=== PATIENT | female | born 1995 | race Caucasian/White ===

== ENCOUNTER 2020-05-23 17:10 | Emergency (ER) | payer MEDICAID ==
[~2020-05-23] VITALS: Ht 165.1 cm; Wt 68.0 kg
[2020-05-23] MEDS ORDERED: LIDOCAINE VISCOUS 2% UD 15 ML UDC ONE (18:07)
[2020-05-23] MEDS ORDERED: IBUPROFEN 600 MG TABLET ONE (18:08)
[2020-05-23] MEDS: LIDOCAINE VISCOUS 2% UD 15 ML UDC MM ONE (18:12)
[2020-05-23] MEDS: IBUPROFEN 600 MG TABLET PO ONE (18:12)
--- NOTE | 2020-05-23 18:13 | NUR ---
MEDICATED ORDERED,WAITING FOR SWABS
[2020-05-23 19:01] VITALS: BP 121/67
== END 2020-05-23 19:01 | disposition home or self-care (01) ==
LOC: ER 17:16
DX: J02.9 Acute pharyngitis, unspecified (principal); R50.9 Fever, unspecified; Z20.828 Contact with and (suspected) exposure to other viral communicable diseases; Z88.0 Allergy status to penicillin
CPT/HCPCS: 87880; 99283; C9803; U0003; 86403-TC

== ENCOUNTER 2020-09-24 05:42 | Emergency (ER) | payer MEDICAID, OTHER ==
[~2020-09-24] VITALS: Ht 165.1 cm; Wt 68.0 kg
--- NOTE | 2020-09-24 06:02 | NUR ---
PT AAOX4. AMBULATORY WITH STEADY GAIT. BIBSEKF C/O MID LOWER ABD PAIN +L FLANK PAIN X1 DAY. PT PLACED IN BED 2 ON MONITOR AND PULSE OX. VSS. NO ACUTE DISTRESS NOTED. AWAITING MD FOR EVAL AND ORDERS.
--- NOTE | 2020-09-24 06:41 | NUR ---
URINE SAMPLE SENT TO LAB
[2020-09-24] MEDS ORDERED: KETOROLAC TROMETHAMINE INJ 30 MG/ML VIAL ONE (06:59)
[2020-09-24] MEDS ORDERED: ONDANSETRON HCL/PF 4 MG/2 ML VIAL ONE (06:59)
[2020-09-24] MEDS ORDERED: IV NS 0.9% 1,000 ML BAG IV ONE (07:00)
[2020-09-24] MEDS ORDERED: ONDANSETRON HCL/PF 4 MG/2 ML VIAL IVP ONE (07:00)
[2020-09-24] MEDS ORDERED: KETOROLAC TROMETHAMINE INJ 30 MG/ML VIAL IV ONE (07:00)
--- NOTE | 2020-09-24 07:07 | NUR ---
BLOOD WORK SENT TO LAB .
--- NOTE | 2020-09-24 07:17 | NUR ---
PT RESTING COMFORTABLY. PROVIDED WITH BLANKETS.
[2020-09-24 07:22] LABS: BASOPHILS % (AUTO) 0.2 % (0.0-2.0); EOSINOPHILS % (AUTO) 0.7 % (0.0-6.0); HEMATOCRIT 42 % (33-45); LYMPHOCYTES # (AUTO) 1.4 /CMM (0.8-4.8); MEAN CORPUSCULAR HGB CONC 33 g/dl (31.0-36.0); MEAN CORPUSCULAR VOLUME 94 fL (82-100); MONOCYTES # (AUTO) 1.1 /CMM (0.1-1.30); MONOCYTES % (AUTO) 7.1 % (2.0-12.0); NEUTROPHILS # (AUTO) 12.6 /CMM (1.8-8.9); PLATELET COUNT (AUTO) 265 /CMM (150-450); RED BLOOD CELL COUNT(AUTO) 4.53 MIL/uL (4.0-5.2); WHITE BLOOD COUNT (AUTO) 15.2 K/uL (4.3-11.0)
--- NOTE | 2020-09-24 07:22 | NUR ---
REPORT GIVEN TO JOSE GIRALDO FOR AMA
[2020-09-24 07:26] LABS: BILIRUBIN,URINE NEGATIVE (NEGATIVE); COLOR,URINE YELLOW (YELLOW); LEUKOCYTE ESTERASE ,URINE LARGE (NEGATIVE); NITRITE, URINE NEGATIVE (NEGATIVE); PH,URINE 6.5 (5.0-8.0); PROTEIN,URINE 100 mg/dl (NEGATIVE); UGLUCOSE NEGATIVE (NEGATIVE); UROBILINOGEN,URINE 0.2 EU/dL (0.2)
[2020-09-24 07:42] LABS: BACTERIA,URINE Moderate /HPF (None Seen)
[2020-09-24 07:44] LABS: SQUAMOUS EPITHELIAL CELL,UR Moderate /HPF (None Seen); WBC,URINE 81-100 /HPF (0-3)
[2020-09-24 07:46] LABS: ALBUMIN 3.8 g/dL (3.4-5.0); BILIRUBIN,DIRECT 0.1 mg/dL (0.0-0.2); BILIRUBIN,TOTAL 0.4 mg/dL (0.2-1.0); CALCIUM, SERUM 9.1 mg/dL (8.5-10.1); CREATININE 1.1 mg/dL (0.6-1.3); TOTAL PROTEIN, SERUM 7.6 g/dL (6.4-8.2)
[2020-09-24 08:00] VITALS: BP 126/67
[2020-09-24] MEDS ORDERED: CIPROFLOXACIN HCL 500 MG TABLET PO ONE (08:00)
[2020-09-24] MEDS ORDERED: CIPROFLOXACIN HCL 500 MG TABLET ONE (08:04)
[2020-09-24] MEDS ORDERED: IBUP800T54 PO (08:14)
[2020-09-24] MEDS ORDERED: PHEN-704 PO (08:14)
[2020-09-24] MEDS ORDERED: CIPR500T5 PO (08:14)
--- NOTE | 2020-09-24 08:21 | NUR ---
IV removed. Catheter intact and site benign. Pressure and 4x4 applied to site. No bleeding noted.Patient discharged to home in stable condition. Written and verbal after care instructions given. Patient verbalizes understanding of instruction.
== END 2020-09-24 08:23 | disposition home or self-care (01) ==
LOC: ER 05:44
DX: N10 Acute pyelonephritis (principal); Z88.0 Allergy status to penicillin
CPT/HCPCS: 36415; 74176; 80048; 80076; 81001; 83690; 84703; 85025; 87086; 96361; 96374; 96375; 99284; J1885; J2405; J7030; 87186-TC

== ENCOUNTER 2021-02-04 22:17 | Emergency (ER) | payer OTHER ==
[~2021-02-04] VITALS: Ht 165.1 cm; Wt 64.4 kg
[~2021-02-04 22:17] MED LIST: CIPR500T5 PO; IBUP800T54 PO; PHEN-704 PO
[2021-02-04 22:32] VITALS: BP 142/87
[2021-02-04] MEDS ORDERED: KETOROLAC TROMETHAMINE INJ 30 MG/ML VIAL ONE (22:52)
[2021-02-04] MEDS ORDERED: METOCLOPRAMIDE HCL 10 MG/2 ML VIAL ONE (22:52)
[2021-02-04] MEDS ORDERED: KETOROLAC TROMETHAMINE INJ 30 MG/ML VIAL IV ONE (23:00)
[2021-02-04] MEDS ORDERED: METOCLOPRAMIDE HCL 10 MG/2 ML VIAL IV ONE (23:00)
[2021-02-04] MEDS ORDERED: diphenhydrAMINE HCL 25 MG CAPSULE ONE (23:26)
[2021-02-04] MEDS ORDERED: diphenhydrAMINE HCL 25 MG CAPSULE PO ONE (23:30)
== END 2021-02-04 23:57 | disposition home or self-care (01) ==
LOC: ER 22:19
DX: R51.9 Headache, unspecified (principal); Z88.0 Allergy status to penicillin; Y08.89XA Assault by other specified means, initial encounter; Y93.89 Activity, other specified; Y92.89 Other specified places as the place of occurrence of the external cause; Y99.8 Other external cause status
CPT/HCPCS: 96374; 96375; 99284; J1885; J2765; Q0163

== ENCOUNTER 2021-02-17 01:14 | Emergency (ER) | payer OTHER ==
[~2021-02-17] VITALS: Ht 165.1 cm; Wt 63.5 kg
--- NOTE | 2021-02-17 01:43 | NUR ---
PRESENTED TO THE ER FOR C/O MISSTERNAL CP X 2 WEEKS. HAD A COVID TEST ON TUESDAY FOR COLD SYMPTOMS AND REC'D A CALL W/ + RESULTS TODYA. - SOB. VSS. PT AMBULATORY TO BED 5 ER. VSS. WILL CONT TO MONITOR ,
--- NOTE | 2021-02-17 01:59 | NUR ---
URINE AND BLOOD WORK COLLECTED, SENT TO LAB.
[2021-02-17 02:07] LABS: BASOPHILS # (AUTO) 0.1 K/uL (0.0-0.2); BASOPHILS % (AUTO) 0.7 % (0.0-2.0); EOSINOPHILS % (AUTO) 1.2 % (0.0-6.0); HEMATOCRIT 43 % (33-45); HEMOGLOBIN 14.7 g/dL (11.5-14.8); LYMPHOCYTES # (AUTO) 2.7 K/uL (0.8-4.8); LYMPHOCYTES % (AUTO) 26.3 % (20.0-44.0); MEAN CORPUSCULAR HGB CONC 34 g/dl (31.0-36.0); MEAN CORPUSCULAR VOLUME 92 fL (82-100); MONOCYTES # (AUTO) 1.1 K/uL (0.1-1.30); MONOCYTES % (AUTO) 10.5 % (2.0-12.0); NEUTROPHILS # (AUTO) 6.3 K/uL (1.8-8.9); NEUTROPHILS % (AUTO) 61.3 % (43.0-81.0); PLATELET COUNT (AUTO) 376 K/uL (150-450); RED BLOOD CELL COUNT(AUTO) 4.72 MIL/uL (4.0-5.2); WHITE BLOOD COUNT (AUTO) 10.2 K/uL (4.3-11.0)
[2021-02-17 02:16] LABS: CALCIUM, SERUM 8.7 mg/dL (8.5-10.1)
[2021-02-17] MEDS ORDERED: IBUP-1955 PO (03:19)
[2021-02-17 03:31] VITALS: BP 116/73
--- NOTE | 2021-02-17 03:31 | NUR ---
MEDICALLY STABLE FOR D/C. IV removed. Catheter intact and site benign. Pressure and 4x4 applied to site. No bleeding noted.Patient discharged to home in stable condition. Rx and Written and verbal after care instructions given. Patient verbalizes understanding of instruction.
== END 2021-02-17 03:31 | disposition home or self-care (01) ==
LOC: ER 01:17
DX: U07.1 COVID-19 (principal); R07.89 Other chest pain; Z88.0 Allergy status to penicillin; Z79.899 Other long term (current) drug therapy
CPT/HCPCS: 36415; 71045-TC; 80048-TC; 84484-TC; 84703-TC; 85025-TC; 85378-TC

== ENCOUNTER 2021-04-13 10:40 | Emergency (ER) | payer OTHER ==
[~2021-04-13] VITALS: Ht 165.1 cm; Wt 63.5 kg
[~2021-04-13 10:40] MED LIST changes: +IBUP-1955 PO
--- NOTE | 2021-04-13 10:55 | NUR ---
TO ER BED 4, C/O LT HAND PAIN, AAOX4, BREATHING EVEN AND UNLABORED, MD AT BEDSIDE
--- NOTE | 2021-04-13 11:05 | NUR ---
XRAY AT BEDSIDE
[2021-04-13] MEDS ORDERED: IBUPROFEN 600 MG TABLET PO ONE (12:00)
[2021-04-13] MEDS ORDERED: IBUPROFEN 600 MG TABLET ONE (12:02)
[2021-04-13 12:04] VITALS: BP 110/84
== END 2021-04-13 12:04 | disposition home or self-care (01) ==
LOC: ER 10:43
DX: S62.395A Other fracture of fourth metacarpal bone, left hand, initial encounter for closed fracture (principal); Z88.0 Allergy status to penicillin; F17.200 Nicotine dependence, unspecified, uncomplicated; Z79.899 Other long term (current) drug therapy; X58.XXXA Exposure to other specified factors, initial encounter; Y93.89 Activity, other specified; Y92.89 Other specified places as the place of occurrence of the external cause; Y99.8 Other external cause status
CPT/HCPCS: 73130-TC